=== PATIENT | female | born 1955 | race African-American/Black ===

== ENCOUNTER → 2021-10-15 | Outpatient (CLI) | payer MEDICARE, MEDICAID ==
[~2021-10-15] MED LIST: COLCRYS0.6 MG PO; INDOCIN 25MG CA25 MG PO; LOTREL 5/10MG C1 CAP PO; MAALOX PLUS 3030 ML PO; MILK OF MA400 MG/51 PO; NORVASC 10MG10 MG PO; TYLENOL 325MG325 MG PO; TYLENOL EXTRA500 M1 PO; ZYLOPRIM 100MG100 MG PO
== END ==
LOC: COL.RAD 13:46
DX: R59.0 Localized enlarged lymph nodes (principal); R19.09 Other intra-abdominal and pelvic swelling, mass and lump